=== PATIENT | male | born 1975 | race Hispanic/Latino ===

== ENCOUNTER 2022-04-27 11:54 | Emergency (ER) | payer OTHER ==
[~2022-04-27] VITALS: Ht 160 cm; Wt 55.0 kg
[2022-04-27] MEDS ORDERED: NAPROXEN500 MG PO (15:36)
[2022-04-27] MEDS ORDERED: KEFLEX500 MG PO (15:36)
[2022-04-27 16:00] VITALS: BP 120/84
== END 2022-04-27 16:20 | disposition home or self-care (01) | DRG 159 ==
LOC: ED 11:54
PROC: 0HQ1XZZ Repair Face Skin, External Approach (ICD-10-PCS; principal; 2022-04-27)
DX: S01.511A Laceration without foreign body of lip, initial encounter (principal); S43.101A Unspecified dislocation of right acromioclavicular joint, initial encounter; S01.01XA Laceration without foreign body of scalp, initial encounter; W13.2XXA Fall from, out of or through roof, initial encounter; Y92.008 Other place in unspecified non-institutional (private) residence as the place of occurrence of the external cause